=== PATIENT | female | born 1950 | race African-American/Black ===

== ENCOUNTER 2025-02-01 03:29 | Inpatient (IN) | payer BC ==
[~2025-02-01] VITALS: Ht 162.6 cm; Wt 68.0 kg
[2025-02-01 03:48] LABS: PLATELET COUNT (AUTO) 129 K/uL (150-450); RED BLOOD CELL COUNT(AUTO) 5.37 MIL/uL (4.0-5.2); RED CELL DISTRIBUTION WIDTH 16.3 % (11.5-15.0); WHITE BLOOD COUNT (AUTO) 8.2 K/uL (4.3-11.0)
[2025-02-01] MEDS ORDERED: NOREPINEPHRINE 32 MG in IV NS 0.9% 218 ML IV PRN ×2 (04:00→04:30)
[2025-02-01] MEDS ORDERED: TPN/PPN PER PHARMACY IV PRN (04:00)
[2025-02-01] MEDS: Sodium Bicarbonate 100 MEQ in IV NS 0.9% 1,000 ML IV SCH (04:21)
[2025-02-01 04:23] VITALS: BP 120/80; O2SAT 99
[2025-02-01] MEDS ORDERED: ACETAMINOPHEN 325 MG TABLET PO PRN (04:30)
[2025-02-01] MEDS ORDERED: ZOLPIDEM TARTRATE 5 MG TABLET PO PRN (04:30)
[2025-02-01] MEDS ORDERED: ONDANSETRON HCL/PF 4 MG/2 ML VIAL IVP PRN (04:30)
[2025-02-01] MEDS ORDERED: IBUP-2715 PO (04:31)
[2025-02-01] MEDS ORDERED: ACET325T53 PO (04:33)
[2025-02-01] MEDS ORDERED: INSULIN REGULAR, HUMAN 100 UNIT/ML 3 ML VIAL SQ PRN (05:00)
[2025-02-01] MEDS ORDERED: DEXTROSE 50%-WATER 50 ML DISP.SYRIN IV PRN (05:00)
[2025-02-01] MEDS ORDERED: BLOOD SUGAR DIAGNOSTIC 1 EACH STRIP IN SCH (05:00)
== END 2025-02-01 05:45 | disposition still patient (30) | DRG 871 ==
LOC: ICU 03:29
PROC: 5A1935Z Respiratory Ventilation, Less than 24 Consecutive Hours (ICD-10-PCS; principal; 2025-02-01)
PROC: 0BH17EZ Insertion of Endotracheal Airway into Trachea, Via Natural or Artificial Opening (ICD-10-PCS; principal; 2025-02-01)
DX: A41.9 Sepsis, unspecified organism (principal); J15.9 Unspecified bacterial pneumonia; N17.0 Acute kidney failure with tubular necrosis; J96.01 Acute respiratory failure with hypoxia; J69.0 Pneumonitis due to inhalation of food and vomit; J45.51 Severe persistent asthma with (acute) exacerbation
CPT/HCPCS: 36415; 82962-TC; 85025-TC; G0378; J1815; J7030; J7050